=== PATIENT | male | born 1980 | race Caucasian/White ===

== ENCOUNTER 2016-12-18 01:57 | Emergency (ER) | payer BC ==
[~2016-12-18] VITALS: Ht 175.3 cm; Wt 90.9 kg
[~2016-12-18 01:57] MED LIST: ADVIL200 MG PO; AUGMENTIN 875 M1 TAB PO; FLEXERIL10 MG PO; LORTAB 5/500 501 TAB PO; MOTRIN800 MG PO; NAPROSYN500 MG PO; NO HOME MEDICATIONS; NORCO 325 MG-7.1 TAB PO
[2016-12-18 02:56] LABS: INFLUENZA B NEGATIVE
[2016-12-18 03:06] VITALS: BP 121/80; PULSE 88; TEMP 99
== END 2016-12-18 03:07 | disposition home or self-care (01) ==
LOC: COL.ER 01:57
PROVIDERS: Physician Assistant
DX: J11.1 Influenza due to unidentified influenza virus with other respiratory manifestations (principal)
CPT/HCPCS: J1885

== ENCOUNTER → 2017-08-18 | Outpatient (REF) | LOC: WSOH 12:45 | DX: Z02.89 Encounter for other administrative examinations (principal) ==